=== PATIENT | female | born 1935 | race Two or more races ===

== ENCOUNTER 2017-06-13 10:24 | Outpatient (CLI) | payer OTHER ==
[~2017-06-13] VITALS: Ht 157.5 cm; Wt 63.5 kg
== END 2017-06-13 10:40 | disposition home or self-care (01) ==
LOC: OFIC 805 10:24
DX: H90.41 Sensorineural hearing loss, unilateral, right ear, with unrestricted hearing on the contralateral side (principal); R22.1 Localized swelling, mass and lump, neck

== ENCOUNTER 2017-07-11 13:16 | Outpatient (CLI) | payer OTHER ==
[~2017-07-11] VITALS: Ht 152.4 cm; Wt 63.5 kg
== END 2017-07-11 13:45 | disposition home or self-care (01) ==
LOC: OFIC 805 13:16
DX: H93.13 Tinnitus, bilateral (principal); H90.3 Sensorineural hearing loss, bilateral

== ENCOUNTER 2017-08-09 08:22 | Outpatient (CLI) | payer OTHER | END 2017-08-09 08:23 | disposition home or self-care (01) | LOC: SONOGRAMA 08:22 | DX: E04.1 Nontoxic single thyroid nodule (principal) ==